=== PATIENT | female | born 1970 | race African-American/Black ===

== ENCOUNTER 2019-06-22 20:02 | Emergency (ER) | payer MEDICARE, MEDICAID ==
[~2019-06-22] VITALS: Ht 165.1 cm; Wt 64.4 kg
--- NOTE | 2019-06-22 20:41 | NUR ---
ED Nurse Note: Patient presents with complaints of itching left arm since she pet a dog in the park today.
[2019-06-22 20:42] VITALS: BP 103/68
--- NOTE | 2019-06-22 20:51 | Emergency Room Report ---
History of Present Illness General Chief Complaint: Allergic Reaction Source: Patient Present Illness HPI Patient is a 49 yo female with left upper extremity itching for 1-2 hours after petting a dog. Allergies: Uncoded Allergies: PENICILLIN (Allergy, Unknown, 06/22/19) Patient History Past Medical History: see triage record Now: No Reviewed Nursing Documentation: PMH: Agreed; PSxH: Agreed Nursing Documentation-PMH Hx Seizures: Yes Review of Systems All Other Systems: negative except mentioned in HPI Physical Exam Vital Signs Date Time Temp Pulse Resp B/P (MAP) Pulse Ox O2 Delivery O2 Flow Rate FiO2 06/22/19 20:32 97.5 90 18 103/68 (80) 98 Room Air General Appearance: well appearing, no apparent distress Head: normocephalic, atraumatic ENT: hearing grossly normal, normal voice Neck: full range of motion, supple Respiratory: lungs clear, no respiratory distress, speaking full sentences Cardiovascular #1: normal inspection, regular rate, rhythm Musculoskeletal: normal inspection Neurologic: normal inspection, alert, oriented x3, responsive, normal gait Psychiatric: mood/affect normal Skin: other - left upper extremity small patchy with swelling Medical Decision Making Diagnostic Impression: Primary Impression: Insect bite Additional Impression: Allergic reaction Last Vital Signs Date Time Temp Pulse Resp B/P (MAP) Pulse Ox O2 Delivery O2 Flow Rate FiO2 06/22/19 20:42 97.5 90 18 103/68 98 Room Air Status: improved Disposition: HOME, SELF-CARE Condition: Stable Scripts Hydrocortisone/Aloe Vera 1%* (HYDROCORTISONE-ALOE 1% CREAM*) Y Cr 1 APPLIC TOPIC Q6H PRN for Itching, #30 GM Prov: Geoff Rodrigues MD 06/22/19 Geoff Rodrigues MD Jun 22, 2019 20:51
[2019-06-22] MEDS ORDERED: HYDROCORTISONE-30 GM TOPIC (20:52)
[2019-06-22] MEDS ORDERED: Hydrocortisone 1% Cr 15gm TOPIC ONE (21:00)
[2019-06-22 21:05] VITALS: BP 103/68
--- NOTE | 2019-06-22 21:05 | NUR ---
ED Nurse Note: Patient cleared for discharge, verbalized understanding of discharge instructions and departed with all belongings.
== END 2019-06-22 21:05 | disposition home or self-care (01) ==
LOC: EMR 20:50
DX: S40.862A Insect bite (nonvenomous) of left upper arm, initial encounter (principal); W57.XXXA Bitten or stung by nonvenomous insect and other nonvenomous arthropods, initial encounter; T78.40XA Allergy, unspecified, initial encounter; X58.XXXA Exposure to other specified factors, initial encounter; Y92.9 Unspecified place or not applicable; Z88.0 Allergy status to penicillin
CPT/HCPCS: 99282

== ENCOUNTER 2019-07-24 17:07 | Emergency (ER) | payer MEDICARE, MEDICAID ==
[~2019-07-24] VITALS: Ht 165.1 cm; Wt 64.9 kg
[~2019-07-24 17:07] MED LIST: HYDROCORTISONE-30 GM TOPIC
[2019-07-24] MEDS ORDERED: NKM (17:17)
[2019-07-24 17:20] VITALS: BP 104/61
--- NOTE | 2019-07-24 17:20 | NUR ---
ED Nurse Note: Walk-in patient with complaints of cough and cold recently saw primary care across the street who referred her here for a breathing treatment.
[2019-07-24] MEDS ORDERED: Dexamethasone 4mg/ml vial IM ONE (17:30)
--- NOTE | 2019-07-24 17:40 | NUR ---
ED Nurse Note: Patient tolerated medication well and is currently undergoing breathing treatment. highway engineering technician at bedside. Will continue to monitor.
[2019-07-24] MEDS: Albuterol/Ipratropium 3ml neb HHN SCH ×5 (17:43→19:09)
--- NOTE | 2019-07-24 17:50 | NUR ---
ED Nurse Note: Patient currently undergoing chest xray.
--- NOTE | 2019-07-24 18:19 | Emergency Room Report ---
History of Present Illness General Chief Complaint: Upper Respiratory Illness Source: Patient Present Illness HPI 49-year-old female with no significant past medical history here complaining of wheezing and cough x1 week. Patient went to see her primary care today for similar reason and was given a prescription for Levaquin as well as guaifenesin cough syrup. Patient however was told to go to the emergency room for breathing treatment. Patient is actively wheezing however in no apparent distress, vital signs are within normal limits. Patient denies history of tobacco smoke, vaping, asthma. Denies chest pain shortness of breath. Reports that 1 week ago she started having generalized body pain and now her back is hurting however denies any fall or injury. Reports that her back pain started due to repeated coughing and shortness of breath. Patient denies leg swelling and cramping. Patient denies any history of cardiac disease. Denies history of high blood pressure. Patient has low risk factors for having a pulmonary embolus. However advised the patient to follow-up with primary care in this regard and if worsening chest pain or shortness of breath return to the emergency room. After 3 treatments of breathing treatment patient started feeling better, ambulatory, and was able to ambulate out of the emergency room in no apparent distress. Allergies: Coded Allergies: PENICILLINS (Unverified Allergy, Unknown, 07/24/19) Uncoded Allergies: PENICILLIN (Allergy, Unknown, 06/22/19) Patient History Past Medical History: see triage record Past Surgical History: unable to obtain Pertinent Family History: none Last Menstrual Period: 4 YEARS AGO Now: No Immunizations: UTD Reviewed Nursing Documentation: PMH: Agreed; PSxH: Agreed Nursing Documentation-PM Past Medical History: No History, Except For Hx Neurological Problems: Yes - SEIZURE Hx Seizures: Yes Review of Systems All Other Systems: negative except mentioned in HPI Physical Exam Vital Signs Date Time Temp Pulse Resp B/P (MAP) Pulse Ox O2 Delivery O2 Flow Rate FiO2 07/24/19 17:12 99.0 103 18 104/61 (75) 98 Room Air 07/24/19 17:30 21 Sp02 EP Interpretation: reviewed, normal General Appearance: no apparent distress, alert, GCS 15, non-toxic Head: normocephalic, atraumatic Eyes: bilateral eye normal inspection, bilateral eye PERRL ENT: hearing grossly normal, normal pharynx, no angioedema, normal voice Neck: full range of motion, supple/symm/no masses Respiratory: chest non-tender, normal breath sounds, no rhonchi, no respiratory distress, no retraction, speaking full sentences, wheezing - diffuse Cardiovascular #1: regular rate, rhythm, no edema, no murmur Gastrointestinal: normal bowel sounds, non tender, soft, non-distended, no guarding, no rebound Rectal: deferred Genitourinary: normal inspection, no CVA tenderness Musculoskeletal: back normal, gait/station normal, normal range of motion, non- tender, no calf tenderness Neurologic: alert, oriented x3, responsive, motor strength/tone normal, sensory intact, speech normal Psychiatric: judgement/insight normal, memory normal, mood/affect normal, no suicidal/homicidal ideation Skin: no rash Lymphatic: no adenopathy Medical Decision Making PA Attestation All my diagnosis and treatment plans were reviewed ad discussed with my supervising physician Dr. Rodrigues Diagnostic Impression: Primary Impression: URI (upper respiratory infection) Additional Impression: Wheezing ER Course 49-year-old female with no significant past medical history here complaining of wheezing and cough x1 week. Patient went to see her primary care today for similar reason and was given a prescription for Levaquin as well as guaifenesin cough syrup. Patient however was told to go to the emergency room for breathing treatment. Patient is actively wheezing however in no apparent distress, vital signs are within normal limits. Patient denies history of tobacco smoke, vaping, asthma. Denies chest pain shortness of breath. Reports that 1 week ago she started having generalized body pain and now her back is hurting however denies any fall or injury. Reports that her back pain started due to repeated coughing and shortness of breath. Patient denies leg swelling and cramping. Patient denies any history of cardiac disease. Denies history of high blood pressure. Patient has low risk factors for having a pulmonary embolus. However advised the patient to follow-up with primary care in this regard and if worsening chest pain or shortness of breath return to the emergency room. After 3 treatments of breathing treatment patient started feeling better, ambulatory, and was able to ambulate out of the emergency room in no apparent distress. Ddx considered but are not limited to: strep pharyngitis, URI, tonsillitis, peritonsillar abscess, influneza Vital signs: are WNL, pt. is afebrile H&PE are most consistent with: URI, wheezing ORDERS: Chest x-ray, Medrol Dosepak, albuterol inhaler ED INTERVENTIONS: breathing tx, dexamethasone DISCHARGE: At this time pt. is stable for d/c to home. Will provide printed patient care instructions, and any necessary prescriptions. Care plan and follow up instructions have been discussed with the patient prior to discharge. Continue taking the medication was prescribed to you by your primary care follow-up with your primary care provider if you continue to have pain in your back or any pleuritic chest pain to the emergency room Chest X-Ray Diagnostic Results Chest X-Ray Diagnostic Results : Chest X-Ray Ordered: Yes # of Views/Limited/Complete: 1 View Indication: Shortness of Breath EP Interpretation: Yes [facility] Xray: Interpretation reviewed, by supervising MD, and agrees with findings. Interpretation: no consolidation, no effusion, no pneumothorax Impression: No acute disease Electronically Signed by: Robby Martinez PA-C Last Vital Signs Date Time Temp Pulse Resp B/P (MAP) Pulse Ox O2 Delivery O2 Flow Rate FiO2 07/24/19 17:45 97 20 99 Room Air 21 100 24 99 07/24/19 17:20 99.0 104/61 Disposition: HOME, SELF-CARE Condition: Stable Scripts Albuterol Sulfate (VENTOLIN HFA) 18 Gm Hfa.aer.ad 2 PUFFS INH EVERY 6 HOURS, #18 GM 0 Refills Prov: Robby Chisholm 07/24/19 Methylprednisolone (Methylprednisolone*) 4MG Dspk 4 MG ORAL DIRECTED for 6 Days, #21 EA 0 Refills Day 1: Two tablets before breakfast, one after lunch, one after dinner, and two at bedtime. If started late in the day, take all six tablets at once or divide into two or three doses, unless otherwise directed by prescriber. Day 2: One tablet before breakfast, one after lunch, one after dinner, and two at bedtime Day 3: One tablet before breakfast, one after lunch, one after dinner, and one at bedtime Day 4: One tablet before breakfast, one after lunch, and one at bedtime Day 5: One tablet before breakfast and one at bedtime Day 6: One tablet before breakfast Prov: Robby Chisholm 07/24/19 Referrals: Scar Dickson MD (PCP) Patient Instructions: Upper Respiratory Infection, Adult Additional Instructions: Take antibiotics have been given to you by your primary doctor and cough syrup also use inhalers as needed avoid exposure to tobacco smoke and also ingestion of spicy food if worsening symptoms return to the emergency room Robby Chisholm Jul 24, 2019 18:19
[2019-07-24] MEDS ORDERED: VENTOLIN HFA18 GM INH (18:20)
[2019-07-24] MEDS ORDERED: MEDROL DOSEPAK4 MG ORAL (18:20)
--- NOTE | 2019-07-24 18:26 | NUR ---
ED Nurse Note: Patient completed all breathing treatments.
--- NOTE | 2019-07-24 18:36 | NUR ---
ED Nurse Note: Patient awaiting 3 adidtional breathing treatments, benefits technician informed.
--- NOTE | 2019-07-24 19:31 | NUR ---
ED Nurse Note: Patient cleared for discharge, verbalized understanding of discharge instructions. ID band removed, Patient departed with all belongings to bus to pharmacy.
[2019-07-24 19:32] VITALS: BP 104/61
--- NOTE | 2019-07-25 14:15 | Diagnostic Imaging Report ---
Indication: Shortness of breath Technique: One view of the chest Comparison: none Findings: Lungs and pleural spaces are clear. Heart size is normal. Impression: No acute process
== END 2019-07-24 19:32 | disposition home or self-care (01) ==
LOC: EMR 17:35
DX: J06.9 Acute upper respiratory infection, unspecified (principal); R06.2 Wheezing; Z88.0 Allergy status to penicillin
CPT/HCPCS: 71045; 94640; 94664; 96372; 99284; J1100; J7620